=== PATIENT | female | born 1985 | race Caucasian/White ===

== ENCOUNTER 2017-10-13 15:04 | Inpatient (IN) | payer OTHER ==
[2017-10-13 15:17] VITALS: BMI 32.0
[2017-10-13] MEDS ORDERED: SODIUM CHLORIDE 0.9% 1000 ML INFUS.BAG IV ONE ×2 (16:20→17:30)
[2017-10-13 16:35] LABS: BASO % 0.4 % (0-2.0); EOS % 2.7 % (0-4.5); HEMATOCRIT 38.7 % (32.4-45.2); HEMOGLOBIN 13.3 GM/dL (10.7-15.3); LYMPH % 31.4 % (8-40); MCH 30.9 pg (25.7-33.7); MCHC 34.4 g/dl (32.0-36.0); MEAN CELL VOLUME 89.9 fl (80-96); MEAN PLT VOLUME 8.3 fl (7.5-11.1); MONO % 7.6 % (3.8-10.2); NEUT % 57.9 % (42.8-82.8); PLATELET COUNT 279 K/MM3 (134-434); RBC 4.31 M/mm3 (3.60-5.2); RDW 13.9 % (11.6-15.6); WHITE BLOOD COUNT 7.2 K/mm3 (4.0-10.0)
--- NOTE | 2017-10-13 16:39 | PDOC ---
History of Present Illness <Nubia Johnson - Last Filed: 10/13/17 19:26> - General History Source: Patient - History of Present Illness Initial Comments: 10/13/17 16:34 Patient is a 32 year old female with a PMH of akathisias, major depressive disorder who presents to our Emergency Department this afternoon c/o abdominal pain. Pain is sharp, 10/10, diffuse with some radiation to her R flank. Endorses nausea, denies emesis. Patient tolerating PO intake (last meal was at 12 p.m. today) and last BM was yesterday evening and was normal. 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 Patient has scheduled appointment with cotton program technician tomorrow (Dr. Roberts) for further evaluation. NKDA Surgical: denies Social: lifetime non-smoker, social alcohol, denies recreational drugs <Lili Napoles - Last Filed: 10/21/17 18:23> - General Chief Complaint: Pain, Acute Stated Complaint: DOCTOR REFERRED Time Seen by Provider: 10/13/17 15:35 Past History <Nubia Johnson - Last Filed: 10/13/17 19:26> - Past Medical History CVA: No COPD: No DVT: No Psychiatric Problems: Yes (ANXIETY/ DEPRESSION) - Immunization History Immunization Up to Date: Yes - Suicide/Smoking/Psychosocial Hx Smoking History: Never smoked Have you smoked in the past 12 months: No Information on smoking cessation initiated: No Hx Alcohol Use: No Drug/Substance Use Hx: No Substance Use Type: None <Lili Napoles - Last Filed: 10/21/17 18:23> - Past Medical History Allergies/Adverse Reactions: Allergies Allergy/AdvReac Type Severity Reaction Status Date / Time No Known Allergies Allergy Verified 10/20/17 03:38 Home Medications: Ambulatory Orders LORazepam [Ativan] 1 mg PO DAILY 07/04/14 Risperidone [Risperdal -] 1 mg PO DAILY 07/04/14 Fluvoxamine Maleate [Luvox -] 300 mg PO HS 03/11/16 Ranitidine HCl [Zantac] 300 mg PO BID 03/12/16 Naproxen Sodium [Anaprox Ds] 550 mg PO BID #20 tablet 10/15/17 Review of Systems - Review of Systems Constitutional: No: Chills, Fever HEENTM: No: Recent change in vision Respiratory: No: Cough, Shortness of Breath Cardiac (ROS): No: Chest Pain, Lightheadedness, Palpitations, Syncope ABD/GI: Yes: Nausea, Abdominal cramping. No: Constipated, Diarrhea, Vomiting : No: Burning, Dysuria <Lili Napoles - Last Filed: 10/21/17 18:23> *Physical Exam - Vital Signs Last Vital Signs Temp Pulse Resp BP Pulse Ox 98.1 F 71 18 106/57 96 10/13/17 15:14 10/13/17 15:14 10/13/17 15:14 10/13/17 15:14 10/13/17 15:14 <Nubia Johnson - Last Filed: 10/13/17 19:26> - Vital Signs Last Vital Signs Temp Pulse Resp BP Pulse Ox 98.1 F 71 18 106/57 96 10/13/17 15:14 10/13/17 15:14 10/13/17 15:14 10/13/17 15:14 10/13/17 15:14 - Physical Exam General Appearance: Yes: Nourished, Obese HEENT: positive: EOMI Neck: positive: Trachea midline, Supple Respiratory/Chest: positive: Lungs Clear, Other Cardiovascular: positive: S1, S2. negative: Edema, JVD Gastrointestinal/Abdominal: positive: Soft, Tenderness (LLQ TTP, R CVA tenderness). negative: Hernia, Mass Musculoskeletal: positive: CVA Tenderness (R). negative: CVA Tenderness (L) Extremity: positive: Normal Capillary Refill, Normal Inspection Integumentary: positive: Normal Color, Dry, Warm Neurologic: positive: travel director II-XII NML intact, Fully Oriented, Alert <Lili Napoles - Last Filed: 10/21/17 18:23> ED Treatment Course - LABORATORY CBC & Chemistry Diagram: 10/13/17 16:23 10/13/17 16:23 - ADDITIONAL ORDERS Additional order review: Laboratory Results 10/13/17 10/13/17 10/13/17 16:23 16:23 16:23 PT with INR 12.50 INR 1.11 PTT (Actin FS) 31.0 Sodium Potassium Chloride Carbon Dioxide Anion Gap BUN Creatinine Creat Clearance w eGFR Random Glucose Lactic Acid Calcium Total Bilirubin AST ALT Alkaline Phosphatase Total Protein Albumin Lipase Serum , Qual Negative Blood Type A POSITIVE Antibody Screen Negative 10/13/17 10/13/17 16:23 16:22 PT with INR INR PTT (Actin FS) Sodium 139 Potassium 4.1 Chloride 105 Carbon Dioxide 28 Anion Gap 6 L BUN 14 Creatinine 0.8 Creat Clearance w eGFR > 60 Random Glucose 88 Lactic Acid 4.3 H* Calcium 8.6 Total Bilirubin 0.2 D AST 15 ALT 21 Alkaline Phosphatase 65 Total Protein 6.9 Albumin 3.8 Lipase 133 Serum , Qual Blood Type Antibody Screen 10/13/17 16:23 RBC 4.31 MCV 89.9 MCHC 34.4 RDW 13.9 MPV 8.3 D Neutrophils % 57.9 D Lymphocytes % 31.4 Monocytes % 7.6 Eosinophils % 2.7 Basophils % 0.4 - RADIOLOGY Radiology Studies Ordered: Category Date Time Status TRANSVAGINAL ULTRASOUND US [US] Stat Ultrasound 10/13/17 16:17 Taken - Medications Given in the ED: ED Medications Discontinued Medications Generic Name Dose Route Start Last Admin Trade Name Freq PRN Reason Stop Dose Admin Morphine Sulfate 4 mg 10/13/17 16:40 10/13/17 16:45 Morphine Injection - IVPUSH 10/13/17 16:41 4 mg ONCE ONE Administration Ondansetron HCl 4 mg 10/13/17 16:41 10/13/17 16:43 Zofran Injection IVPUSH 10/13/17 16:42 4 mg ONCE ONE Administration Sodium Chloride 1,000 ml 10/13/17 16:20 10/13/17 16:27 Normal Saline - IV 10/13/17 16:21 1,000 ml ONCE ONE Administration Sodium Chloride 1,000 ml 10/13/17 17:30 10/13/17 17:32 Normal Saline - IV 10/13/17 17:31 1,000 ml ONCE ONE Administration <Cirilli,Nubia - Last Filed: 10/13/17 19:26> - LABORATORY CBC & Chemistry Diagram: 10/13/17 16:23 10/13/17 16:23 - RADIOLOGY Radiology Studies Ordered: Category Date Time Status CXRPORT [CHEST X-RAY PORTABLE*] [RAD] Stat Radiology 10/13/17 16:20 Taken - Medications Given in the ED: ED Medications Discontinued Medications Generic Name Dose Route Start Last Admin Trade Name Freq PRN Reason Stop Dose Admin Sodium Chloride 1,000 ml 10/13/17 16:20 10/13/17 16:27 Normal Saline - IV 10/13/17 16:21 1,000 ml ONCE ONE Administration <Lili Napoles - Last Filed: 10/21/17 18:23> Medical Decision Making - Medical Decision Making 10/13/17 16:55 32 year old female presents to Emergency Department c/o pelvic pain. Presumptive diagnosis of ovarian teratoma as per paperwork from an outside facility. Will obtain TVUS, pre-operative labs as well as belly labs, ECG, CXR. Pain control with morphine. Will page OB-Fish Net Stringer. Reassess. 10/13/17 18:28 Lactic Acid 4.3 --> patient receiving IV NS. Belly remains soft, non-tender. No leukocytosis. TVUS pending. Patient and patient's family counseled on POC. TVUS equivocal for torsion; given significant clinical morbidity associated w/ torsion will admit for surgical intervention today. Patient signed out to Dr. Gray (Resident) for further management. <Lili Napoles - Last Filed: 10/21/17 18:23> *DC/Admit/Observation/Transfer - Discharge Dispostion Admit: Yes <Nubia Johnson - Last Filed: 10/13/17 19:26> <Lili Napoles - Last Filed: 10/21/17 18:23> Diagnosis at time of Disposition: Dermoid cyst, Torsion of right ovary and ovarian pedicle - Discharge Dispostion Condition at time of disposition: Good
[2017-10-13] MEDS ORDERED: morphine CARPU-JECT 4 MG/1 ML DISP.SYRIN IVPUSH ONE (16:40)
[2017-10-13] MEDS ORDERED: morphine SULFATE 4 MG/ML VIAL ONE (16:41)
[2017-10-13] MEDS ORDERED: ONDANSETRON 4 MG/2 ML VIAL IVPUSH ONE (16:41)
[2017-10-13] MEDS ORDERED: ONDANSETRON 4 MG/2 ML VIAL ONE ×2 (16:41→20:02)
[2017-10-13 16:50] LABS: INR 1.11 (0.82-1.09); PROTHROMBIN TIME (PATIENT) 12.5 SEC (9.7-13.0)
--- NOTE | 2017-10-13 16:51 | PDOC ---
Attending Attestation - HPI HPI: 10/13/17 17:00 Patient is a 32 year old female with PMHx of OCD, anxiety, depression, seizure , and vertigo, who was referred by [facility] and presents with left ovarian teratoma. Patient went to [facility] urgent care on Saturday after experiencing abdominal pain and was diagnosed with benign neoplasm of the left ovary approximately [address] revealed an adnexal mass believed to be a teratoma. She has an appt with Dr. Roberts (ObGyn) tomorrow. She was told that if her pain continues, she should go to the ER to have it surgically removed. She states that her abdominal pain became acutely worse around 4:00 pm today and was originally a 7/10 but is currently a 10/10. She describes her pain as intermittent, at times sharp as a knife, sometimes achy. She also endorses nausea but denies vomit. She states her last meal was around noon. She endorses right flank and left groin pain. Denies any urinary complaints. Denies previous abdominal surgeries. 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 No wheezes, and no crackles HEART: Regular rate and rhythm, normal S1 and S2, no murmurs, rubs or gallops ABDOMEN: Soft, Mild LLQ and RLQ tenderness,normoactive bowel sounds. No guarding, no rebound. EXTREMITIES: Normal range of motion, no edema. No clubbing or cyanosis. No cords, erythema, or tenderness NEUROLOGICAL: Normal speech SKIN: Warm, Dry, normal turgor, no rashes or lesions noted. <Ami Ceballos - Last Filed: 10/13/17 17:00> - Resident Resident Name: Lili Napoles - ED Attending Attestation I have performed the following: I have examined & evaluated the patient, The case was reviewed & discussed with the resident, I agree w/resident's findings & plan, Exceptions are as noted - Medical Decision Making 10/13/17 19:09 32 yo F with h/o dermoid cyst, dgx 3 days ago, now rlq and llq pain right flank pain. differential rupture, torsion, pain from mass effect of cyst. plan ua labs community liaison consult. will d/w dr. roberts, ( has not seen pt previously) or community liaison special education professor, tvus r/o torsion labs ua and ucg. <Nubia Johnson - Last Filed: 10/13/17 19:09> Heart Score/ECG Review #1 ECG reviewed & interpreted by me at: 16:40 General ECG Interpretation: Sinus Rhythm, Normal Rate, Normal Intervals, No acute ischemic changes <Nubia Johnson - Last Filed: 10/13/17 19:09>
[2017-10-13 17:04] LABS: ALBUMIN 3.8 g/dl (3.4-5.0); ALK PHOS 65 U/L (45-117); ANION GAP 6 (8-16); BILIRUBIN,TOTAL 0.2 mg/dL (0.2-1.0); BLOOD UREA NITROGEN 14 mg/dL (7-18); CALCIUM 8.6 mg/dL (8.5-10.1); CHLORIDE 105 mmol/L (98-107); CO2 28 mmol/L (21-32); CREATININE 0.8 mg/dL (0.55-1.02); GLUCOSE,RANDOM 88 mg/dL (74-106); LIPASE 133 U/L (73-393); POTASSIUM 4.1 mmol/L (3.5-5.1); SGOT/AST 15 U/L (15-37); SGPT/ALT 21 U/L (12-78); SODIUM 139 mmol/L (136-145); TOT PROT 6.9 g/dl (6.4-8.2)
[2017-10-13] MEDS ORDERED: ROCURONIUM BROMIDE 50 MG/5 ML VIAL ONE (19:58)
[2017-10-13] MEDS ORDERED: PROPOFOL 20 ML ONE (19:58)
[2017-10-13] MEDS ORDERED: MIDAZOLAM HCL 2 MG/2 ML SINGLE DOSE VIAL ONE (19:59)
[2017-10-13] MEDS ORDERED: LIDOCAINE HCL/PF 2% SDV 5ML VIAL ONE ×2 (20:00→20:01)
[2017-10-13] MEDS ORDERED: NEOSTIGMINE METHYLSULFATE 0.5 MG/ML - 10 ML MDV ONE (20:00)
[2017-10-13] MEDS ORDERED: LACTATED RINGERS SOLUTION 1,000 ML IV SCH (20:00)
[2017-10-13] MEDS ORDERED: GLYCOPYRROLATE 0.2 MG/1 ML VIAL ONE (20:01)
[2017-10-13] MEDS ORDERED: DEXAMETHASONE SOD PHOSPHATE 4 MG/1 ML VIAL ONE (20:02)
[2017-10-13] MEDS ORDERED: KETOROLAC TROMETHAMINE 30 MG/1 ML VIAL ONE (20:02)
[2017-10-13] MEDS ORDERED: ceFAZolin SODIUM 1 GM VIAL ONE (21:18)
[2017-10-13] MEDS ORDERED: SODIUM CHLORIDE 0.9% P/F 10 ML VIAL IJ ONE (21:18)
[2017-10-13] MEDS ORDERED: ceFAZolin SODIUM 1 GM VIAL IVPB ONE (21:20)
--- NOTE | 2017-10-13 21:58 | HP ---
Admitting History and Physical - Admission Chief Complaint: abdominal pain History of Present Illness: 32 y/o comes with abdominal pain. Pt was seen on saturday with abdominaml pain and had imaging that showed an ovarian cyst. Comes today with increased pain. 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: No: Alzheimer's, CVA, Dementia, Migraine, Multiple Sclerosis, Peripheral Neuropathy, Parkinson's, Seizure, Syncope, TIA, Vertigo, Other Cardiovascular: No: AFIB, Aneurysm, Aortic Insufficiency, Aortic Stenosis, CAD, CHF, Deep Vein Thrombosis, HTN, Hyperlipdemia, MA, Mitral Insufficiency, Mitral Stenosis, Murmur, Pulmonary Hypertension, Other Pulmonary: No: Asthma, Bronchitis, Cancer, COPD, O2 Dependent, Pneumonia, Previously Intubated, Pulmonary Embolus, Pulmonary Fibrosis, Sleep Apnea, Other Gastrointestinal: No: Ascites, Cancer, Constipation, Crohn's Disease, Diverticulitis, Diverticulosis, Esophageal Varices, Gastritis, GERD, GI Bleed, Hemorrhoids, Hiatal Hernia, Inflamatory Bowel Disease, Irritable Bowel Disease, Pancreatitis, Peptic Ulcer Disease, Ulcerative Colitis, Other Hepatobiliary: No: Cirrhosis, Cholelithiasis, Cholecystitis, Choledocholithiasis , Hepatitis A, Hepatitis B, Hepatitis C, Other Renal/: No: Renal Failure, Renal Inusuff, BPH, Cancer, Hematuria, Hemodialysis , Neurogenic Bladder, Renal Calculi, UTI, Other Reproductive: No: Ectopic , Endometriosis, Fibroids, PID, Polycystic Ovary Syndrome, Postmenopausal, Other Heme/Onc: No: Anemia, B12 Deficiency, Bleeding Disorder, Cancer, Current Chemotherapy, Current Radiation Therapy, Hemochromatosis, Hypercoaguable State, Myeloproliferative Synd, Sickle Cell Disease, Sickle Cell Trait, Thrombocytopenia, Other Infectious Disease: No: AIDS, C-Diff, Herpes Zoster, HIV, MRSA, STD's, Tuberculosis, VREF, Other Psych: Yes: Anxiety, Depression, Other (OCD, ). No: Addictions, Bipolar, Panic , Psychosis, Schizophrenia Musculoskeletal: No: Bursitis, Chronic low back pain, Hemiparesis, Hemiplegia, Osteoarthritis, Paraplegia, Other Rheumatology: No: Fibromyalgia, Gout, Lupus, Rheumatoid Arthritis, Sarcoidosis, Vasculitis, Other ENT: No: Allergic Rhinitis, Sinusitis, Other Dermatology: No: Basal Cell, Cellulitis, Eczema, Melanoma, Psoriasis, Squamous Cell, Other - Past Surgical History Past Surgical History: No: None, AAA Repair, AICD, Amputation, Appendectomy, Arthrosocopy, AV Fistula/Graft, Bariatric Surgery, Breast Biopsy, Bypass, CABG, Carotid Endarterectomy, Cataract Removal, Cholecystectomy, Colectomy, Colonoscopy, Colostomy, Craniotomy, , Cystectomy, Hernia Repair, Hysterectomy, Ileal Conduit, Ileosotomy, Joint Replacement, Kidney Transplant, Laminectomy, Liver Transplant, Mastectomy, Nephrectomy, Oopherectomy, Orchiectomy, Permanent Pacemaker, Prostatectomy, Splenectomy, Stent, Thoracotomy , TURP, Tonsillectomy, Tubal Ligation, Upper Endoscopy, Valve Replacement, Vasectomy, Vein Stripping/Ligation - Advance Directives Advance Directives: No: Living Will, Health Care Proxy, DNR, Organ Donor, Tissue Donor, MOLST - Smoking History Smoking history: Never smoked Have you smoked in the past 12 months: No - Alcohol/Substance Use Hx Alcohol Use: No History of Substance Use: denies: None, Cocaine, Heroin, Marijuana, Prescription , Tranquilizers - Social History Usual Living Arrangement: No: Alone, With Spouse, With Parent, With Significant Other, With Child, Assisted Living, Shelter, Other Home Medications - Allergies Allergies/Adverse Reactions: Allergies Allergy/AdvReac Type Severity Reaction Status Date / Time No Known Allergies Allergy Verified 10/13/17 15:13 - Home Medications Home Medications: Ambulatory Orders LORazepam [Ativan] 1 mg PO DAILY 07/04/14 Risperidone [Risperdal -] 1 mg PO DAILY 07/04/14 Fluvoxamine Maleate [Luvox -] 300 mg PO HS 03/11/16 Ranitidine HCl [Zantac] 300 mg PO BID 03/12/16 Review of Systems - Review of Systems Constitutional: reports: No Symptoms Eyes: reports: No Symptoms HENT: reports: No Symptoms Neck: reports: No Symptoms Cardiovascular: reports: No Symptoms Respiratory: reports: No Symptoms Gastrointestinal: reports: No Symptoms Genitourinary: reports: No Symptoms Breasts: reports: No Symptoms Reported Musculoskeletal: reports: No Symptoms Integumentary: reports: No Symptoms Neurological: reports: No Symptoms Endocrine: reports: No Symptoms, Unexplained Weight Gain Hematology/Lymphatic: reports: No Symptoms Psychiatric: reports: No Symptoms Physical Examination Vital Signs: Vital Signs Temperature 98.1 F 10/13/17 15:14 Pulse Rate 71 10/13/17 15:14 Respiratory Rate 18 10/13/17 15:14 Blood Pressure 106/57 10/13/17 15:14 O2 Sat by Pulse Oximetry (%) 98 10/13/17 20:22 Constitutional: Yes: Well Nourished Eyes: Yes: WNL HENT: Yes: WNL Neck: Yes: WNL Cardiovascular: Yes: WNL Respiratory: Yes: WNL Gastrointestinal: Yes: WNL Renal/: Yes: WNL Breast(s): Yes: WNL Musculoskeletal: Yes: WNL Labs: CBC, BMP 10/13/17 16:23 10/13/17 16:23 Assessment/Plan ABOVE for e lap abx labs consents.
[2017-10-13] MEDS ORDERED: ONDANSETRON 4 MG/2 ML VIAL IVPUSH PRN (22:01)
[2017-10-13] MEDS ORDERED: IBUPROFEN 800 MG/8 ML IJ IVPB PRN (22:02)
[2017-10-13] MEDS ORDERED: ACETAMINOPHEN 1000 MG/100 ML VIAL (NON FORMULARY) IVPB ONE (22:06)
[2017-10-13] MEDS ORDERED: morphine SULFATE 4 MG/ML VIAL IVPUSH PRN (22:14)
[2017-10-13] MEDS ORDERED: LACTATED RINGERS SOLUTION 1,000 ML/1,000 ML INFUS.BAG IV SCH (22:15)
[2017-10-14 00:18] LABS: URINE APPEARANCE CLEAR; URINE BILIRUBIN NEGATIVE (<2.0 mg/dL); URINE COLOR LTYELLOW; URINE GLUCOSE (UA) NEGATIVE (NEGATIVE); URINE KETONE NEGATIVE (NEGATIVE); URINE LEUK ESTERASE NEGATIVE (NEGATIVE); URINE NITRITE NEGATIVE (NEGATIVE); URINE PROTEIN NEGATIVE (NEGATIVE); URINE UROBILINOGEN NEGATIVE mg/dL (0.2-1.0)
[2017-10-14 00:40] LABS: EPI CELLS RARE /HPF (FEW); URINE HYALINE CAST 1 /lpf; URINE MUCUS RARE
[2017-10-14] MEDS ORDERED: MORPHINE SULFATE 10 MG/1 ML *VIAL IVPUSH PRN (05:46)
--- NOTE | 2017-10-14 09:48 | PN ---
Progress Note (short form) - Note Progress Note: Anesthesia POD#1 S/P Exlaparotomy for teratoma under GA VSS,clear liquids started,no N/V,pain is well controlled. A/P NO complications to anesthesia seen. Idalmis Funes MD.
--- NOTE | 2017-10-14 09:51 | PN ---
Progress Note (SOAP) - Subjective History of Present Illness: pod#1 e lap, rso, doing well, some throat pain and incisioanl pain - Current Medications Current Medications: Active Medications Lactated Ringer's (Lactated Ringers Solution) 1,000 mls @ 75 mls/hr IV ASDIR EMIR Lactated Ringer's (Lactated Ringers Solution) 1,000 ml in 1,000 mls @ 125 mls/ hr IV ASDIR EMIR Ibuprofen (Caldolor Injection -) 800 mg IVPB Q6H PRN PRN Reason: FEVER Last Admin: 10/14/17 06:29 Dose: 800 mg Morphine Sulfate (Morphine Injection -) 2 mg IVPUSH Q3H PRN PRN Reason: PAIN LEVEL 4 - 6 Ondansetron HCl (Zofran Injection) 4 mg IVPUSH Q6H PRN PRN Reason: NAUSEA - Objective Vital Signs: Vital Signs Temperature 98.0 F 10/14/17 06:00 Pulse Rate 98 H 10/14/17 08:11 Respiratory Rate 20 10/14/17 08:11 Blood Pressure 106/84 10/14/17 08:11 O2 Sat by Pulse Oximetry (%) 100 10/13/17 23:30 Constitutional: Yes: Well Nourished Neck: Yes: WNL Cardiovascular: Yes: WNL Labs Lab Results: CBC, BMP 10/13/17 16:23 10/13/17 16:23 Assessment/Plan as above oob reg diet pain meds
[2017-10-14] MEDS ORDERED: BENZOCAINE/MENTH/CETYLPYRD CL 1 EACH LOZENGE MM PRN (09:52)
[2017-10-14] MEDS: oxyCODONE HCL 5 MG TABLET PO PRN ×2 (10:41→18:53)
[2017-10-14] MEDS: ACETAMINOPHEN 325 MG TABLET (FP) PO PRN ×2 (10:42→18:54)
--- NOTE | 2017-10-14 12:23 | EKG ---
Test Reason : Blood Pressure : / mmHG Vent. Rate : 058 BPM Atrial Rate : 058 BPM P-R Int : 122 ms QRS Dur : 086 ms QT Int : 420 ms P-R-T Axes : 035 048 035 degrees QTc Int : 412 ms SINUS BRADYCARDIA OTHERWISE NORMAL ECG WHEN COMPARED WITH ECG OF 11-MAR-2016 17:31, VENT. RATE HAS DECREASED BY 53 BPM Confirmed by HUMAIRA URBAN MD ([id number]) on 10/14/2017 12:23:22 PM Referred By: Confirmed By:HUMAIRA URBAN MD
[2017-10-15] MEDS: ACETAMINOPHEN 325 MG TABLET (FP) PO PRN (06:27)
[2017-10-15 08:29] VITALS: BP 100/73; PULSE 64; TEMP 98.1
--- NOTE | 2017-10-16 16:17 | PATH ---
Surgical Pathology Report Patient Name: RAVINDER RICARDO [facility]. Rec. 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 Specimen(s) Received RIGHT OVARY Clinical History Ovarian cyst Final Diagnosis OVARY, RIGHT, OOPHORECTOMY: MATURE CYSTIC TERATOMA, 13.5 CM. FALLOPIAN TUBE WITH PARATUBAL CYSTS. Electronically Signed Alessandra Golden M.D. Gross Description Received in formalin labeled "right ovary," is a 557 g, 13.5 x 9.5 x 9.0 cm intact cyst. There is a 2.5 cm in length fimbriated fallopian tube attached to the outer surface. The cut surface of the fallopian tube is unremarkable. The outer surface of the ovary is irene and smooth. The cyst lumen contains irene sebaceous material and hair. Sectioning reveals a focally calcified area. The remaining cyst lining is irene and smooth. Brooch And Bracelet Maker sections are submitted in 10 cassettes as follows: 1-fimbria; 2-cross sections of fallopian tube; 2-1-[id number] area, following decalcification; [id number] claim service representative cyst. /10/14/201710/14/2017
== END 2017-10-15 10:45 | disposition home or self-care (01) | DRG 742 ==
LOC: JER 15:04 → JERBED 19:27 → J3W 10-14 00:38
PROVIDERS: ADMIT Obstetrics & Gynecology; ATTEND Obstetrics & Gynecology
PROC: 0UT04ZZ Resection of Right Ovary, Percutaneous Endoscopic Approach (ICD-10-PCS; principal; 2017-10-13 20:00)
DX: D27.0 Benign neoplasm of right ovary (principal); N83.511 Torsion of right ovary and ovarian pedicle; E66.9 Obesity, unspecified; F32.9 Major depressive disorder, single episode, unspecified; F41.9 Anxiety disorder, unspecified; Z80.41 Family history of malignant neoplasm of ovary; Z68.32 Body mass index [BMI] 32.0-32.9, adult
CPT/HCPCS: 36415; 71045-TC-FY; 76830-TC; 80053; 81003; 81015; 83605; 83690; 84703; 85025; 85610; 85730; 86850; 86900; 86901; 87086; 88307-TC; 93005; 93010; 94760; 99283-25; J0131; J7030

== ENCOUNTER 2017-10-20 03:23 | Emergency (ER) | payer OTHER ==
--- NOTE | 2017-10-20 03:32 | PDOC ---
History of Present Illness <Oanh Suarez - Last Filed: 10/20/17 03:32> <Fadumo Ryan - Last Filed: 10/27/17 00:46> - General Stated Complaint: RE VISIT Time Seen by Provider: 10/20/17 03:32 Past History - Past Medical History CVA: No COPD: No DVT: No Psychiatric Problems: Yes (ANXIETY/ DEPRESSION) - Immunization History Immunization Up to Date: Yes - Suicide/Smoking/Psychosocial Hx Smoking History: Never smoked Have you smoked in the past 12 months: No Hx Alcohol Use: No Drug/Substance Use Hx: No Substance Use Type: None Hx Substance Use Treatment: No <Oanh Suarez - Last Filed: 10/20/17 03:32> <Fadumo Ryan - Last Filed: 10/27/17 00:46> - Past Medical History Allergies/Adverse Reactions: Allergies Allergy/AdvReac Type Severity Reaction Status Date / Time No Known Allergies Allergy Verified 10/20/17 03:38 Home Medications: Ambulatory Orders LORazepam [Ativan] 1 mg PO DAILY 07/04/14 Risperidone [Risperdal -] 1 mg PO DAILY 07/04/14 Fluvoxamine Maleate [Luvox -] 300 mg PO HS 03/11/16 Ranitidine HCl [Zantac] 300 mg PO BID 03/12/16 Naproxen Sodium [Anaprox Ds] 550 mg PO BID #20 tablet 10/15/17 *Physical Exam - Vital Signs Last Vital Signs Temp Pulse Resp BP Pulse Ox 97.4 F L 85 20 102/61 97 10/20/17 03:34 10/20/17 03:34 10/20/17 03:34 10/20/17 03:34 10/20/17 03:34 <Fadumo Ryan - Last Filed: 10/27/17 00:46> Medical Decision Making - Medical Decision Making 10/27/17 00:46 PATIENT WAS SEEN BY 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 PLEASE DISREGARD THIS CHART <Fadumo Ryan - Last Filed: 10/27/17 00:46> *DC/Admit/Observation/Transfer <Oanh Suarez - Last Filed: 10/20/17 03:32> <Fadumo Ryan - Last Filed: 10/27/17 00:46> Diagnosis at time of Disposition: Wound dehiscence, surgical - Discharge Dispostion Disposition: HOME Condition at time of disposition: Stable - Referrals Referrals: Sridhar Adames MD [Staff Physician] - - Patient Instructions Printed Discharge Instructions: DI for Wound Dehiscence Additional Instructions: Avoid heavy lifting Follow-up with your shoe treer operated on you Return back to the emergency department for fever or redness, drainage, pain to the wound
[2017-10-20 03:38] VITALS: BP 102/61; PULSE 85; TEMP 97.4; BMI 19.7
--- NOTE | 2017-10-20 04:23 | PDOC ---
History of Present Illness - General Chief Complaint: Revisit,Wound Recheck Stated Complaint: RE VISIT Time Seen by Provider: 10/20/17 03:32 History Source: Patient Exam Limitations: No Limitations - History of Present Illness Initial Comments: 10/20/17 04:31 Best Contact:[phone] PCP:Dr. Summers/Zacarias Pmhx: "Medicine related seizure" Pshx: 10/12/2017: right oophrectomy/teratoma removal (ovarian torsion) Allergies:NKDA LMP: 09/30/2017 32-year-old female presents to the emergency department complaining of 2 cm wound dehiscence from her surgery times 8 days ago. Patient states she had a oophorectomy/teratoma removal after experiencing severe right pelvic pain. Patient had an ultrasound which showed ovarian torsion. Patient had her poli removed 3 days ago. Patient states she noticed a slight wound dehiscence this morning but denied any pain, fever, chills, redness to the incision, drainage or lymphangitis. Past History - Past Medical History Allergies/Adverse Reactions: Allergies Allergy/AdvReac Type Severity Reaction Status Date / Time No Known Allergies Allergy Verified 10/20/17 03:38 Home Medications: Ambulatory Orders LORazepam [Ativan] 1 mg PO DAILY 07/04/14 Risperidone [Risperdal -] 1 mg PO DAILY 07/04/14 Fluvoxamine Maleate [Luvox -] 300 mg PO HS 03/11/16 Ranitidine HCl [Zantac] 300 mg PO BID 03/12/16 Naproxen Sodium [Anaprox Ds] 550 mg PO BID #20 tablet 10/15/17 CVA: No COPD: No DVT: No Psychiatric Problems: Yes (ANXIETY/ DEPRESSION) - Immunization History Immunization Up to Date: Yes - Suicide/Smoking/Psychosocial Hx Smoking History: Never smoked Have you smoked in the past 12 months: No Information on smoking cessation initiated: No Hx Alcohol Use: No Drug/Substance Use Hx: No Substance Use Type: None Hx Substance Use Treatment: No Review of Systems - Review of Systems Able to Perform ROS?: Yes Comments:: 10/20/17 04:35 CONSTITUTIONAL: Absent: fever, chills, diaphoresis, generalized weakness, malaise, loss of appetite CARDIOVASCULAR: Absent: chest pain, loss of consciousness, palpitations, irregular heart rate, peripheral edema RESPIRATORY: Absent: cough, shortness of breath, dyspnea with exertion, orthopnea, wheezing, stridor, hemoptysis GASTROINTESTINAL: Absent: abdominal pain, abdominal distension, nausea, vomiting, diarrhea, constipation, melena, hematochezia GENITOURINARY: Absent: dysuria, frequency, urgency, hesitancy, hematuria, flank pain, genital pain SKIN: +right sided wound dehiscent from incision on the lower abdomen Absent: rash, itching, pallor HEMATOLOGIC/IMMUNOLOGIC: Absent: easy bleeding, easy bruising, lymphadenopathy, frequent infections Is the patient limited Fijian proficient: No *Physical Exam - Vital Signs Last Vital Signs Temp Pulse Resp BP Pulse Ox 97.4 F L 85 20 102/61 97 10/20/17 03:34 10/20/17 03:34 10/20/17 03:34 10/20/17 03:34 10/20/17 03:34 - Physical Exam Comments: 10/20/17 04:35 GENERAL: Well developed, well nourished. Awake and alert. No acute distress. ABDOMINAL: Soft. Non-tender. Non-distended. No rebound or guarding. No organomegaly. Normoactive bowel sounds. MUSCULOSKELETAL Normal range of motion at all joints. No bony deformities or tenderness. No CVA tenderness. EXTREMITIES: No cyanosis. No clubbing. No edema. No calf tenderness. SKIN: Warm and dry. Normal capillary refill. No rashes. No jaundice. 2 cm wound dehiscence of the right aspect of the lower abdominal incision Negative erythema, drainage, pain on palpation Procedure: Quarter-inch (2)Steri-Strips *DC/Admit/Observation/Transfer Diagnosis at time of Disposition: Wound dehiscence, surgical Qualifiers: Encounter type: initial encounter Qualified Code(s): T81.31XA - Disruption of external operation (surgical) wound, not elsewhere classified, initial encounter - Discharge Dispostion Disposition: HOME Condition at time of disposition: Stable Admit: No - Referrals Referrals: Sridhar Adames MD [Staff Physician] - - Patient Instructions Printed Discharge Instructions: DI for Wound Dehiscence Additional Instructions: Avoid heavy lifting 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
== END 2017-10-20 04:44 | disposition home or self-care (01) ==
LOC: JER 03:23
DX: T81.31XA Disruption of external operation (surgical) wound, not elsewhere classified, initial encounter (principal); F41.9 Anxiety disorder, unspecified; F32.9 Major depressive disorder, single episode, unspecified
CPT/HCPCS: 99281-25

== ENCOUNTER 2022-08-24 01:54 | Emergency (ER) | payer OTHER ==
[2022-08-24 02:17] VITALS: BMI 33.8
[2022-08-24 02:54] LABS: EPI CELLS 21 /uL (0-25.1); HYALINE CASTS 1 /uL (0-3.1); URINE APPEARANCE CLEAR; URINE BACTERIA 1597 /uL (0-1359); URINE BILIRUBIN NEGATIVE (NEGATIVE); URINE COLOR YELLOW; URINE GLUCOSE (UA) NEGATIVE (NEGATIVE); URINE KETONE NEGATIVE (NEGATIVE); URINE LEUK ESTERASE TRACE (NEGATIVE); URINE NITRITE NEGATIVE (NEGATIVE); URINE PROTEIN NEGATIVE (NEGATIVE); URINE UROBILINOGEN 0.2 mg/dL (0.2-1.0); URINE WBC 29 /uL (0-25.8)
[2022-08-24 02:55] LABS: HCG,QUALITATIVE URINE Negative
[2022-08-24] MEDS ORDERED: SODIUM CHLORIDE 0.9% 500 ML INFUS.BAG IV ONE (03:20)
[2022-08-24] MEDS ORDERED: ONDANSETRON 4 MG/2 ML VIAL IVPUSH ONE (03:20)
[2022-08-24] MEDS ORDERED: FAMOTIDINE 20 MG/50 ML IVPB 20 MG/50 ML MG IVPB ONE ×2 (03:20→03:31)
[2022-08-24] MEDS ORDERED: ONDANSETRON 4 MG/2 ML VIAL ONE (03:30)
[2022-08-24 04:14] LABS: BASO % 0.7 % (0-2.0); EOS % 2.1 % (0-4.5); HEMATOCRIT 39.6 % (32.4-45.2); LYMPH % 47.6 % (8-40); MCH 28.4 pg (25.7-33.7); MCHC 32.9 g/dl (32.0-36.0); MEAN CELL VOLUME 86.4 fl (80-96); MONO % 7.2 % (3.8-10.2); NEUT % 42.4 % (42.8-82.8); PLATELET COUNT 312 10^3/uL (134-434); RBC 4.59 M/mm3 (3.60-5.2); RDW 13.5 % (11.6-15.6); WHITE BLOOD COUNT 7.6 K/mm3 (4.0-10.0)
[2022-08-24 04:36] LABS: ALBUMIN 3.4 g/dl (3.4-5.0); BLOOD UREA NITROGEN 11.5 mg/dL (7-18); CALCIUM 8.4 mg/dL (8.5-10.1)
[2022-08-24 04:39] LABS: CREATININE 0.9 mg/dL (0.55-1.3)
[2022-08-24 04:44] LABS: BILIRUBIN,TOTAL 0.2 mg/dL (0.2-1); TOT PROT 6.5 g/dl (6.4-8.2)
[2022-08-24 08:22] VITALS: BP 103/62; PULSE 85; RESP 17; TEMP 97.9
[2022-08-24 14:37] LABS: URINE RBC 57 /uL (0-23.9)
== END 2022-08-24 08:54 | disposition home or self-care (01) ==
LOC: JER 01:54
PROC: 3E033GC Introduction of Other Therapeutic Substance into Peripheral Vein, Percutaneous Approach (ICD-10-PCS; principal; 2022-08-24)
DX: N39.0 Urinary tract infection, site not specified (principal); K59.00 Constipation, unspecified
CPT/HCPCS: 36415; 74177-TC; 80053; 81003; 83605; 84703; 85025; 87086; 93005; 93010; 99285-25; Q9967